=== PATIENT | male | born 1935 | race Caucasian/White ===

== ENCOUNTER 2018-02-05 08:28 | Outpatient (CLI) | payer OTHER | END 2018-02-05 17:00 | disposition home or self-care (01) | LOC: MRI 08:28 | DX: M25.512 Pain in left shoulder (principal); M54.5 Low back pain | CPT/HCPCS: 72148; 73221 ==

== ENCOUNTER 2018-02-17 12:39 | Outpatient (CLI) | payer OTHER | END 2018-02-17 12:45 | disposition home or self-care (01) | LOC: RAD 12:39 | DX: Z01.818 Encounter for other preprocedural examination (principal) ==

== ENCOUNTER → 2018-03-03 | Day surgery (SDC) | payer OTHER ==
[~2018-03-03] MED LIST: FINASTERIDE PO; FOLIC ACID1 MG PO; METOPOROL PO; OMEGA 3 1,0001 EACH PO; VALSARTAN-HCTZ1 EAC4 PO; [UNRECOGNIZED DRUG - OTHER] PO
== END | disposition home or self-care (01) ==
LOC: ADM 02-25 08:00 → CIR.AMB 08:00
DX: M80.08XA Age-related osteoporosis with current pathological fracture, vertebra(e), initial encounter for fracture (principal)

== ENCOUNTER 2018-03-17 11:18 | Outpatient (CLI) | payer OTHER | END 2018-03-17 12:32 | disposition home or self-care (01) | LOC: RAD 11:18 | DX: I10 Essential (primary) hypertension (principal) ==

== ENCOUNTER 2018-04-02 11:43 | Outpatient (CLI) | payer OTHER | END 2018-04-02 14:11 | disposition home or self-care (01) | LOC: RAD 11:43 | DX: M25.511 Pain in right shoulder (principal) ==

== ENCOUNTER 2018-04-27 09:48 | Outpatient (CLI) | payer OTHER | END 2018-04-27 09:52 | disposition home or self-care (01) | LOC: RAD 09:48 | DX: I10 Essential (primary) hypertension (principal) ==

== ENCOUNTER 2018-05-26 09:32 | Outpatient (CLI) | payer OTHER | END 2018-05-26 09:39 | disposition home or self-care (01) | LOC: NUCLEAR 09:32 | DX: C61 Malignant neoplasm of prostate (principal) | CPT/HCPCS: 78306; 78320; A9503 ==

== ENCOUNTER 2018-05-28 07:21 | Outpatient (CLI) | payer OTHER | END 2018-05-28 07:28 | disposition home or self-care (01) | LOC: MRI 07:21 | DX: C61 Malignant neoplasm of prostate (principal) | CPT/HCPCS: 72195 ==

== ENCOUNTER 2018-06-10 07:55 | Outpatient (CLI) | payer OTHER | END 2018-06-10 17:00 | disposition home or self-care (01) | LOC: TOM 07:55 | DX: N20.0 Calculus of kidney (principal); N20.1 Calculus of ureter ==

== ENCOUNTER 2019-02-02 15:04 | Outpatient (CLI) | payer OTHER | END 2019-02-02 15:05 | disposition home or self-care (01) | LOC: RAD 15:04 | DX: J20.8 Acute bronchitis due to other specified organisms (principal) ==

== ENCOUNTER → 2020-06-15 | Outpatient (CLI) | payer OTHER | END | disposition home or self-care (01) | LOC: MRI 10:15 | PROVIDERS: ATTEND Anesthesiology | DX: M48.04 Spinal stenosis, thoracic region (principal); M54.5 Low back pain | CPT/HCPCS: 72148 ==

== ENCOUNTER 2021-01-30 06:22 | Inpatient (IN) | payer OTHER ==
[~2021-01-30] VITALS: Ht 167.6 cm; Wt 81.6 kg
[2021-01-30] MEDS ORDERED: PROTONIX40 M1 (06:31)
[2021-01-30] MEDS ORDERED: BENTYL10 MG/1 ML (06:31)
[2021-01-30] MEDS ORDERED: SINGULAIR10 MG (06:32)
[2021-01-30] MEDS ORDERED: COZAAR50 MG (06:32)
[2021-02-13] MEDS ORDERED: CEFDINIR300 MG PO (13:30)
[2021-02-13] MEDS ORDERED: INTEGRA PLUS C1 EACH PO (13:31)
[2021-02-13] MEDS ORDERED: TOPROL XL25 M1 PO (13:31)
[2021-02-13] MEDS ORDERED: FUROSEMIDE40 MG PO (13:32)
[2021-02-13] MEDS ORDERED: SERTRALINE HCL25 MG PO (13:32)
[2021-02-13] MEDS ORDERED: PROTONIX40 MG PO (13:33)
[2021-02-13] MEDS ORDERED: PYRIDOXINE HCL100 MG PO (13:33)
[2021-02-13] MEDS ORDERED: CRESTOR5 MG PO (13:39)
== END 2021-02-15 15:19 | disposition home or self-care (01) | DRG 280 ==
LOC: ER 06:22 → SURG 11:22 → ICU-2 11:22 → ICU 11:22 → SURG 02-07 14:29
PROVIDERS: ADMIT Internal Medicine; ATTEND Internal Medicine
PROC: 3E0F7GC Introduction of Other Therapeutic Substance into Respiratory Tract, Via Natural or Artificial Opening (ICD-10-PCS; 2021-01-30)
PROC: 4A12X4Z Monitoring of Cardiac Electrical Activity, External Approach (ICD-10-PCS; principal; 2021-02-07)
DX: I13.0 Hypertensive heart and chronic kidney disease with heart failure and stage 1 through stage 4 chronic kidney disease, or unspecified chronic kidney disease (principal); I21.A1 Myocardial infarction type 2; I50.23 Acute on chronic systolic (congestive) heart failure; G93.41 Metabolic encephalopathy; N17.8 Other acute kidney failure; F41.9 Anxiety disorder, unspecified; J44.9 Chronic obstructive pulmonary disease, unspecified; N18.9 Chronic kidney disease, unspecified; I50.9 Heart failure, unspecified; D69.6 Thrombocytopenia, unspecified; I42.0 Dilated cardiomyopathy; F32.9 Major depressive disorder, single episode, unspecified; D50.9 Iron deficiency anemia, unspecified; Z20.822 Contact with and (suspected) exposure to COVID-19

== ENCOUNTER 2021-02-27 19:54 | Inpatient (IN) | payer OTHER ==
[~2021-02-27] VITALS: Ht 167.6 cm; Wt 70.8 kg
[~2021-02-27 19:54] MED LIST changes: +BENTYL10 MG/1 ML; +CEFDINIR300 MG PO; +COZAAR50 MG; +CRESTOR5 MG PO; +FUROSEMIDE40 MG PO; +INTEGRA PLUS C1 EACH PO; +PROTONIX40 M1; +PROTONIX40 MG PO; +PYRIDOXINE HCL100 MG PO; +SERTRALINE HCL25 MG PO; +SINGULAIR10 MG; +TOPROL XL25 M1 PO
== END 2021-03-01 08:41 | disposition expired | DRG 871 ==
LOC: ER 19:54 → SEC-K 02-28 10:05 → ICU-2 02-28 13:51
PROVIDERS: ADMIT Internal Medicine; ATTEND Internal Medicine
PROC: 3E0F7SF Introduction of Other Gas into Respiratory Tract, Via Natural or Artificial Opening (ICD-10-PCS; principal; 2021-02-28)
DX: A41.9 Sepsis, unspecified organism (principal); R65.21 Severe sepsis with septic shock; I21.4 Non-ST elevation (NSTEMI) myocardial infarction; I13.0 Hypertensive heart and chronic kidney disease with heart failure and stage 1 through stage 4 chronic kidney disease, or unspecified chronic kidney disease; N39.0 Urinary tract infection, site not specified; I50.22 Chronic systolic (congestive) heart failure; Z66 Do not resuscitate; N18.9 Chronic kidney disease, unspecified; Z95.810 Presence of automatic (implantable) cardiac defibrillator; I48.91 Unspecified atrial fibrillation; Z20.822 Contact with and (suspected) exposure to COVID-19